=== PATIENT | female | born 1995 | race Caucasian/White ===

== ENCOUNTER 2024-06-02 12:07 | Outpatient (CLI) | payer OTHER | END 2024-06-02 13:11 | disposition home or self-care (01) | LOC: NST 12:07 | PROVIDERS: ATTEND Obstetrics & Gynecology | DX: Z34.83 Encounter for supervision of other normal pregnancy, third trimester (principal) ==

== ENCOUNTER 2024-07-06 13:45 | Inpatient (IN) | payer OTHER ==
[~2024-07-06] VITALS: Ht 160 cm; Wt 3.2 kg
[2024-07-14 15:14] VITALS: BP 126/84
[2024-07-14] MEDS ORDERED: PRENATA CHEWAB1 EACH PO (16:12)
[2024-07-14] MEDS ORDERED: ONDANSETRON ODT4 MG PO (16:13)
[2024-07-14] MEDS ORDERED: RINGERS SOLUTION,LACTATED 1,000 ML IV SCH (16:30)
[2024-07-14] MEDS ORDERED: AMPICILLIN SODIUM 2,000 MG VIAL ONE (16:43)
[2024-07-14] MEDS ORDERED: AMPICILLIN SODIUM 1,000 MG VIAL IV SCH (17:00)
[2024-07-14] MEDS ORDERED: AMPICILLIN SODIUM 2,000 MG VIAL IV ONE (17:00)
[2024-07-14 17:02] LABS: HEMOGLOBIN 11.8 g/dL (11.2-15.7); RED BLOOD COUNT 4.25 M/uL (3.93-5.22)
[2024-07-14 17:03] LABS: BASO % 0.4 % (0.1-1.2); EOS % 0.2 % (0.7-7.0); HEMATOCRIT 35.2 % (34.1-44.9); LYMPH % 23.3 % (19.3-53.1); MEAN CORPUSCULAR HEMOGLOBIN 27.8 pg (25.6-32.2); MONO % 6.1 % (4.7-12.5); NEUT % 69.5 % (34.0-71.1); PLATELET COUNT 195 K/uL (163-369); RED CELL DISTRIBUTION WIDTH 14.6 % (11.6-14.4)
[2024-07-14 17:04] LABS: EOS # 0.02 (0.04-0.54); LYMPH # 1.92 (1.18-3.74); NEUT # 5.72 (1.56-6.13)
[2024-07-14 17:11] LABS: INR < 0.93; PARTIAL THROMBOPLASTIN TIME 28.1 SECONDS (22.0-34.0); PROTHROMBIN TIME 9.9 SECONDS (9.0-11.5)
[2024-07-14 17:15] LABS: ALBUMIN 2.9 gm/dL (3.4-5.0); BILIRUBIN TOTAL 0.26 mg/dL (0.3-1.2); CREATININE SERUM 0.73 mg/dL (0.55-1.02); GFR 94.93; GLOBULINA 3.6 G/DL (2.4-3.5); POTASSIUM 4.05 mEq/L (3.5-5.1); TOTAL PROTEIN 6.5 gm/dL (6.4-8.2)
[2024-07-14 19:00] VITALS: BP 126/84
[2024-07-14 23:18] VITALS: BP 127/88
[2024-07-15] VITALS (7 sets, daily range): BP systolic 117–140; BP diastolic 72–86
[2024-07-15] MEDS ORDERED: OXYTOCIN 20 UNITS/500ML RL PIGGYBAG IV ONE (07:43)
[2024-07-15] MEDS ORDERED: OXYTOCIN 500 ML IV SCH (09:00)
[2024-07-15] MEDS ORDERED: FAMOTIDINE/PF 20 MG/2 ML VIAL IV PUSH PRN (09:30)
[2024-07-15] MEDS ORDERED: MORPHINE SULFATE 4 MG/ML CARTRIDGE IV PRN ×2 (10:00→16:45)
[2024-07-15] MEDS ORDERED: OXYTOCIN 10 UNITS/ML VIAL ONE (16:00)
[2024-07-15] MEDS ORDERED: ERYTHROMYCIN BASE OPHT 1GM EACH TUBE OP ONE (16:00)
[2024-07-15] MEDS ORDERED: RINGERS SOLUTION,LACTATED 1,000 ML IV SCH (16:45)
[2024-07-15] MEDS ORDERED: OXYTOCIN 1,000 ML IV ONE (16:45)
[2024-07-15] MEDS ORDERED: SIMETHICONE 125 MG CAPSULE PO SCH (17:00)
[2024-07-15] MEDS ORDERED: GABAPENTIN 300 MG CAPSULE PO SCH (17:00)
[2024-07-15] MEDS ORDERED: ONDANSETRON HCL 2 MG/ML VIAL IV SCH (17:00)
[2024-07-15] MEDS ORDERED: ACETAMINOPHEN 500 MG GEL..CAP PO SCH (18:00)
[2024-07-15] MEDS ORDERED: KETOROLAC TROMETHAMINE 30 MG VIAL IV SCH (18:00)
[2024-07-15] MEDS ORDERED: KETOROLAC TROMETHAMINE 30 MG VIAL ONE (20:33)
[2024-07-15] MEDS ORDERED: AMPICILLIN SODIUM 1,000 MG VIAL ONE (20:33)
[2024-07-16] VITALS: BP 124/72
[2024-07-16 02:49] LABS: BASO % 0.1 % (0.1-1.2); HEMATOCRIT 29.5 % (34.1-44.9); LYMPH # 1.51 (1.18-3.74); LYMPH % 13.7 % (19.3-53.1); MEAN CORPUSCULAR HEMOGLOBIN 27.8 pg (25.6-32.2); MONO # 0.51 (0.24-0.82); MONO % 4.6 % (4.7-12.5); NEUT # 8.99 (1.56-6.13); NEUT % 81.3 % (34.0-71.1); PLATELET COUNT 168 K/uL (163-369); RED BLOOD COUNT 3.63 M/uL (3.93-5.22); RED CELL DISTRIBUTION WIDTH 14.2 % (11.6-14.4)
[2024-07-16 03:22] LABS: HEMOGLOBIN 10.1 g/dL (11.2-15.7)
[2024-07-16 04:44] VITALS: BP 119/80; O2SAT 97
[2024-07-16] MEDS ORDERED: KETOROLAC TROMETHAMINE 10 MG TABLET PO SCH (08:00)
[2024-07-16] MEDS ORDERED: OxyCODONE HCL 5 MG TABLET (ROXICODONE) PO PRN (08:00)
[2024-07-16 08:19] VITALS: BP 131/90
[2024-07-16] MEDS ORDERED: DOCUSATE SODIUM 100MG CAP PO SCH (09:00)
[2024-07-16 10:34] LABS: BASO % 0.1 % (0.1-1.2); EOS # 0.01 (0.04-0.54); EOS % 0.1 % (0.7-7.0); HEMATOCRIT 31.4 % (34.1-44.9); HEMOGLOBIN 10.8 g/dL (11.2-15.7); LYMPH # 1.61 (1.18-3.74); LYMPH % 12.3 % (19.3-53.1); MEAN CORPUSCULAR HEMOGLOBIN 28.7 pg (25.6-32.2); MONO # 0.43 (0.24-0.82); MONO % 3.3 % (4.7-12.5); NEUT # 10.99 (1.56-6.13); NEUT % 83.8 % (34.0-71.1); PLATELET COUNT 175 K/uL (163-369); RED BLOOD COUNT 3.76 M/uL (3.93-5.22); RED CELL DISTRIBUTION WIDTH 14.6 % (11.6-14.4)
[2024-07-16 11:59] LABS: ALBUMIN 2.3 gm/dL (3.4-5.0); BILIRUBIN TOTAL 0.37 mg/dL (0.3-1.2); CALCIUM 8.4 mg/dL (8.5-10.1); CREATININE SERUM 0.73 mg/dL (0.55-1.02); GFR 94.93; POTASSIUM 3.75 mEq/L (3.5-5.1); TOTAL PROTEIN 5.3 gm/dL (6.4-8.2)
[2024-07-16 15:56] VITALS: BP 127/87
[2024-07-16 20:35] LABS: BASO % 0.2 % (0.1-1.2); EOS # 0.02 (0.04-0.54); EOS % 0.2 % (0.7-7.0); HEMATOCRIT 28.6 % (34.1-44.9); HEMOGLOBIN 9.5 g/dL (11.2-15.7); LYMPH # 1.92 (1.18-3.74); MEAN CORPUSCULAR HEMOGLOBIN 27.7 pg (25.6-32.2); MONO # 0.53 (0.24-0.82); NEUT # 8.08 (1.56-6.13); NEUT % 75.9 % (34.0-71.1); PLATELET COUNT 179 K/uL (163-369); RED BLOOD COUNT 3.43 M/uL (3.93-5.22); RED CELL DISTRIBUTION WIDTH 14.7 % (11.6-14.4)
[2024-07-16 20:35] LABS: URINE APPEARANCE Cloudy; URINE BILIRRUBIN Negative (NEGATIVE); URINE BLOOD Large; URINE COLOR Orange; URINE GLUCOSE Negative (NEGATIVE); URINE KETONE Negative (NEGATIVE); URINE LEUKOCYTE Moderate; URINE NITRATE Negative; URINE UROBILINOGEN 0.2 E.U./dl
[2024-07-16 20:38] LABS: URINE BACTERIA 101.5 uL (0.0-1933); URINE RBC 313.7 uL (0.0-20.8); URINE WBC 201.5 uL (0.0-23.2)
[2024-07-16 21:06] LABS: ALBUMIN 2.1 gm/dL (3.4-5.0); BILIRUBIN TOTAL 0.19 mg/dL (0.3-1.2); CALCIUM 7.7 mg/dL (8.5-10.1); CREATININE SERUM 0.63 mg/dL (0.55-1.02); GFR 112.52; GLOBULINA 2.8 G/DL (2.4-3.5); POTASSIUM 3.84 mEq/L (3.5-5.1); TOTAL PROTEIN 4.9 gm/dL (6.4-8.2)
[2024-07-16 21:50] LABS: URINE CAST 0.73 uL (0.0-1.40); URINE PROTEIN 100 (NEGATIVE)
[2024-07-17 00:54] VITALS: BP 134/84
[2024-07-17 05:00] VITALS: BP 117/76
[2024-07-17 08:51] VITALS: BP 136/83
[2024-07-17] MEDS ORDERED: Calcium Carbonate 1250 MG/5 ML PO SCH (09:00)
[2024-07-17 16:00] VITALS: BP 137/85
[2024-07-18 00:07] VITALS: BP 130/80; O2SAT 99
[2024-07-18 04:30] VITALS: BP 116/77
[2024-07-18 08:00] VITALS: BP 127/80; O2SAT 98
== END 2024-07-18 12:03 | disposition home or self-care (01) | DRG 788 ==
LOC: LDR 07-14 14:36 → OB/GYN 07-15 13:45 → O/R 07-15 16:34 → OB/GYN 07-15 17:23
PROVIDERS: Obstetrics & Gynecology; Obstetrics & Gynecology Gynecology; ADMIT Obstetrics & Gynecology Maternal & Fetal Medicine; ATTEND Obstetrics & Gynecology Maternal & Fetal Medicine
PROC: 4A1HXCZ Monitoring of Products of Conception, Cardiac Rate, External Approach (ICD-10-PCS; 2024-07-14)
PROC: 10D00Z1 Extraction of Products of Conception, Low, Open Approach (ICD-10-PCS; principal; 2024-07-15 18:15)
DX: O36.8130 Decreased fetal movements, third trimester, not applicable or unspecified (principal); Z3A.39 39 weeks gestation of pregnancy; Z37.0 Single live birth

== ENCOUNTER 2024-07-10 09:26 | Outpatient (CLI) | payer OTHER | END 2024-07-10 10:20 | disposition home or self-care (01) | LOC: NST 09:26 | PROVIDERS: ATTEND Obstetrics & Gynecology | DX: Z34.83 Encounter for supervision of other normal pregnancy, third trimester (principal) ==

== ENCOUNTER 2024-07-29 14:36 | Inpatient (IN) | payer OTHER ==
[~2024-07-29] VITALS: Ht 160 cm; Wt 61.2 kg
[~2024-07-29 14:36] MED LIST changes: -NIFEDIPINE10 MG PO
[2024-07-29] MEDS ORDERED: MAGNESIUM SULFATE IN WATER 0.04 GM/ML IV.SOLN IV ONE (14:44)
[2024-07-29] MEDS ORDERED: OXYTOCIN 500 ML IV SCH (14:45)
[2024-07-29] MEDS ORDERED: RINGERS SOLUTION,LACTATED 1,000 ML IV SCH (14:45)
[2024-07-29 15:19] VITALS: BP 131/91; BP 136/88
[2024-07-29 15:59] LABS: BASO % 0.3 % (0.1-1.2); EOS # 0.17 (0.04-0.54); EOS % 1.9 % (0.7-7.0); HEMATOCRIT 38.1 % (34.1-44.9); HEMOGLOBIN 12.5 g/dL (11.2-15.7); LYMPH # 2.81 (1.18-3.74); LYMPH % 31.7 % (19.3-53.1); MEAN CORPUSCULAR HEMOGLOBIN 26.8 pg (25.6-32.2); MONO # 0.48 (0.24-0.82); MONO % 5.4 % (4.7-12.5); NEUT # 5.35 (1.56-6.13); NEUT % 60.5 % (34.0-71.1); RED BLOOD COUNT 4.67 M/uL (3.93-5.22); RED CELL DISTRIBUTION WIDTH 13.9 % (11.6-14.4)
[2024-07-29 16:00] LABS: URINE APPEARANCE Clear; URINE BACTERIA 326.7 uL (0.0-1933); URINE BILIRRUBIN Negative (NEGATIVE); URINE BLOOD Moderate; URINE COLOR Yellow; URINE EPITHELIAL CELLS 13.9 uL (0.0-38.8); URINE GLUCOSE Negative (NEGATIVE); URINE KETONE Negative (NEGATIVE); URINE LEUKOCYTE Small; URINE NITRATE Negative; URINE PROTEIN Negative (NEGATIVE); URINE RBC 2.2 uL (0.0-20.8); URINE UROBILINOGEN 0.2 E.U./dl; URINE WBC 14.8 uL (0.0-23.2)
[2024-07-29 16:03] LABS: URINE CAST 0.29 uL (0.0-1.40)
[2024-07-29] MEDS ORDERED: NIFEDIPINE10 MG PO (16:06)
[2024-07-29 16:18] LABS: INR 1.02; PARTIAL THROMBOPLASTIN TIME 36.1 SECONDS (22.0-34.0); PROTHROMBIN TIME 11.1 SECONDS (9.0-11.5)
[2024-07-29 16:23] LABS: ALBUMIN 3.4 gm/dL (3.4-5.0); BILIRUBIN TOTAL 0.24 mg/dL (0.3-1.2); CALCIUM 9.8 mg/dL (8.5-10.1); CREATININE SERUM 0.74 mg/dL (0.55-1.02); GFR 93.45; GLOBULINA 4.4 G/DL (2.4-3.5); TOTAL PROTEIN 7.8 gm/dL (6.4-8.2); URIC ACID 4.4 mg/dL (2.5-7.5)
[2024-07-29] MEDS ORDERED: MAGNESIUM SULFATE IN WATER 500 ML IV SCH (16:30)
[2024-07-29 17:14] LABS: PLATELET COUNT 555 K/uL (163-369)
[2024-07-29 19:02] VITALS: BP 125/85
[2024-07-29] MEDS ORDERED: ACETAMINOPHEN 500 MG GEL..CAP PO ONE (19:54)
[2024-07-29] MEDS ORDERED: ACETAMINOPHEN 500 MG GEL..CAP PO PRN (20:00)
[2024-07-29] MEDS ORDERED: NIFEDIPINE 30 MG TAB.SA.OSM PO SCH (21:00)
[2024-07-29 23:25] VITALS: BP 107/69
[2024-07-30 02:45] VITALS: BP 103/64; O2SAT 99
[2024-07-30 06:24] VITALS: BP 105/65; O2SAT 98
[2024-07-30 11:13] VITALS: BP 116/78
[2024-07-30 15:08] VITALS: BP 114/70
[2024-07-30 15:40] LABS: BASO % 0.6 % (0.1-1.2); EOS # 0.12 (0.04-0.54); EOS % 1.7 % (0.7-7.0); HEMATOCRIT 34.3 % (34.1-44.9); HEMOGLOBIN 11.4 g/dL (11.2-15.7); LYMPH # 2.23 (1.18-3.74); LYMPH % 31.1 % (19.3-53.1); MEAN CORPUSCULAR HEMOGLOBIN 27.1 pg (25.6-32.2); MONO # 0.54 (0.24-0.82); MONO % 7.5 % (4.7-12.5); NEUT # 4.22 (1.56-6.13); NEUT % 58.8 % (34.0-71.1); PLATELET COUNT 234 K/uL (163-369); RED BLOOD COUNT 4.21 M/uL (3.93-5.22); RED CELL DISTRIBUTION WIDTH 13.9 % (11.6-14.4)
[2024-07-30 16:24] LABS: BILIRUBIN TOTAL 0.21 mg/dL (0.3-1.2); CALCIUM 8.9 mg/dL (8.5-10.1); CREATININE SERUM 0.5 mg/dL (0.55-1.02); GFR 146.91; GLOBULINA 3.5 G/DL (2.4-3.5); POTASSIUM 3.53 mEq/L (3.5-5.1); TOTAL PROTEIN 6.5 gm/dL (6.4-8.2)
== END 2024-07-30 16:54 | disposition home or self-care (01) | DRG 776 ==
LOC: LDR 14:36
PROVIDERS: ADMIT Obstetrics & Gynecology; ATTEND Obstetrics & Gynecology
DX: O89.4 Spinal and epidural anesthesia-induced headache during the puerperium (principal)

== ENCOUNTER → 2024-07-29 | Emergency (ER) | payer OTHER ==
[~2024-07-29] MED LIST: NIFEDIPINE10 MG PO; ONDANSETRON ODT4 MG PO; PRENATA CHEWAB1 EACH PO
== END | disposition left against medical advice (07) ==
LOC: ER 13:50
DX: Z53.21 Procedure and treatment not carried out due to patient leaving prior to being seen by health care provider (principal)